=== PATIENT | female | born 1950 | race Caucasian/White ===

== ENCOUNTER 2016-12-10 06:15 | Inpatient (IN) | payer MEDICARE, BC ==
[~2016-12-10] VITALS: Ht 157.5 cm; Wt 73.0 kg
[2016-12-10] VITALS (17 sets, daily range): BP systolic 82–138; BP diastolic 40–98
[~2016-12-10 06:15] MED LIST: cefOXitin Sod 2 GM in D5W 110 ML IVPB ONE
--- NOTE | 2016-12-10 06:50 | Pre-Procedure Note/Attestation ---
Pre-Procedure Note/Attestation Complete Prior to Procedure Planned Procedure: not applicable Procedure Narrative: cystocele and rectocele repair vaginal sling cystoscopy Indications for Procedure Pre-Operative Diagnosis: vaginal prolapse Attestation I attest that I discussed the nature of the procedure; its benefits; risks and complications; and alternatives (and the risks and benefits of such alternatives ), prior to the procedure, with the patient (or the patient's legal employment program representative). I attest that, if there was a reasonable possibility of needing a blood transfusion, the patient (or the patient's legal employment program representative) was given the [facility] standardized written summary, pursuant to the Su[place] Blood Safety Act ([place] Health and Safety Code # 1645, as amended). I attest that I re-evaluated the patient just prior to the surgery and that there has been no change in the patient's H&P, except as documented below: Zen Hummel MD Dec 10, 2016 06:50
[2016-12-10] MEDS ORDERED: LR 1000ml 1,000 ML IVLG SCH (07:04)
[2016-12-10] MEDS ORDERED: ATORVASTATIN CA20 MG ORAL (07:10)
[2016-12-10] MEDS ORDERED: LOSARTAN POTASS50 MG ORAL (07:10)
[2016-12-10] MEDS ORDERED: ASPIRIN81 MG ORAL (07:10)
--- NOTE | 2016-12-10 07:13 | Anethesia Preoperative Eval ---
Anesthesia Pre-op PMH/ROS General Date of Evaluation: Dec 10, 2016 Time of Evaluation: 08:41 Anesthesiologist: Bee ASA Score: ASA 3 Mallampati Score Class I : Soft palate, uvula, fauces, pillars visible Class II: Soft palate, uvula, fauces visible Class III: Soft palate, base of uvula visible Class IV: Only hard plate visible Mallampati Classification: Class II Surgeon: Nakia Diagnosis: Vaginal Prolapse Surgical Procedure: Laparoscopic Assisted Hysterectomy, BSO, rectocele repair Anesthesia History: none Family History: no anesthesia problems Allergies: Coded Allergies: No Known Allergies (Unverified , 12/05/16) Medications: see eMAR Past Medical History Cardiovascular: Reports: HTN, other - HL, valve dz - Mitral Valve Disease Gastrointestinal/Genitourinary: Reports: other - Renal Stones HEENT: Reports: cataract (L), cataract (R), other - R Ear Deaf Other: obesity - BMI 30 Anesthesia Pre-op Phys. Exam Physician Exam Constitutional: NAD Neurologic: CN 2-12 intact Cardiovascular: RRR Respiratory: CTA Gastrointestinal: S/NT/ND Airway Exam Mallampati Score: Class II MO: limited ROM: limited Teeth: missing, intact Anesthesia Pre-op A/P Risk Assessment & Plan Assessment: ASA 3 Plan: GA, BIS, Glidescope Status Change Before Surgery: No Pre-Antibiotics Dru Grams Cefoxitin IV Given Within 1 Hr of Incision: Yes Time Given: 08:56 Ermias Moreno MD Dec 10, 2016 07:13
[2016-12-10] MEDS ORDERED: DiphenhydrAMINE 50mg/ml Inj IVP PRN (07:15)
[2016-12-10] MEDS ORDERED: Norco 5mg/325mg tab ORAL PRN ×2 (07:15→13:45)
[2016-12-10] MEDS ORDERED: Hydromorphone 0.5mg/0.5ml inj IVP PRN (07:15)
[2016-12-10] MEDS ORDERED: Midazolam 2mg/2ml Inj IVP PRN (07:15)
[2016-12-10] MEDS ORDERED: Ketorolac 30mg Inj IV PRN (07:15)
[2016-12-10] MEDS ORDERED: Norco 7.5mg/325mg tab ORAL PRN (07:15)
[2016-12-10] MEDS ORDERED: fentaNYL 100 mcg/2 mL IV PRN (07:15)
[2016-12-10] MEDS ORDERED: Ketorolac 60mg Inj IV PRN (07:15)
[2016-12-10] MEDS ORDERED: Meperidine 25mg/0.5ml Inj IV PRN (07:15)
[2016-12-10] MEDS ORDERED: Metoclopramide 10mg/2ml Inj IVP PRN (07:15)
[2016-12-10] MEDS ORDERED: Atropine Inj 1mg/10ml Syr IV PRN (07:15)
[2016-12-10] MEDS ORDERED: LORazepam Inj 2mg/ml 1ml IV PRN (07:15)
[2016-12-10] MEDS ORDERED: Oxycodone/Acetaminophen 5-325 ORAL PRN (07:15)
[2016-12-10] MEDS ORDERED: cefOXitin 2gm Inj ONE (07:18)
[2016-12-10] MEDS ORDERED: Ropivacaine 5mg/ml Vial 20ml INJ ONE (07:19)
--- NOTE | 2016-12-10 07:54 | Immediate Post-Op Evaluation ---
Immediate Post-Op Evalulation Immediate Post-Op Evalulation Procedure: Laparoscopic Assisted Hysterectomy, BSO, rectocele repair Date of Evaluation: Dec 10, 2016 Time of Evaluation: 12:19 IV Fluids: 1000 LR Blood Products: 0 Estimated Blood Loss: 75 Urinary Output: 360 Blood Pressure Systolic: 113 Blood Pressure Diastolic: 73 Pulse Rate: 51 Respiratory Rate: 15 O2 Sat by Pulse Oximetry: 97 Temperature (Fahrenheit): 07.4 Pain Score (1-10): 2 Nausea: No Vomiting: No Complications 0 Patient Status: awake, reacts, patent, extubated, none Hydration Status: adequate Dru Grams Cefoxitin IV Given Within 1 Hr of Incision: Yes Time Given: 08:56 Ermias Moreno MD Dec 10, 2016 07:54
[2016-12-10] MEDS ORDERED: Surgicel 4in x 8in TOPIC ONE (07:57)
[2016-12-10] MEDS ORDERED: Acetaminophen (Non formulary) 100 ML IV ONE (08:30)
[2016-12-10] MEDS ORDERED: ProvayBlue 5mg/ml 10ml amp INJ ONE (08:30)
[2016-12-10] MEDS ORDERED: Lidocaine 1% MPF 10mg/ml 5ml ONE (08:45)
[2016-12-10] MEDS ORDERED: Propofol 10mg/ml 20ml IV ONE (08:45)
[2016-12-10] MEDS ORDERED: Midazolam 2mg/2ml Inj ONE (08:45)
[2016-12-10] MEDS ORDERED: Dexamethasone 4mg/ml vial ONE (08:45)
[2016-12-10] MEDS ORDERED: Glycopyrrolate 0.2mg/ml 1ml Vial ONE (08:45)
[2016-12-10] MEDS ORDERED: Sterile Water For Irrig 2000ml IRRIG ONE (08:45)
[2016-12-10] MEDS ORDERED: LR 1000ml ONE (08:45)
[2016-12-10] MEDS ORDERED: Neostigmine 1mg/ml 10ml Inj ONE (08:45)
[2016-12-10] MEDS ORDERED: Bupivacaine w/Epi 0.25% 30ml Vial INJ ONE (08:45)
[2016-12-10] MEDS ORDERED: NS Irrig 1000ml ONE (08:45)
[2016-12-10] MEDS ORDERED: Metoclopramide 10mg/2ml Inj ONE (08:45)
[2016-12-10] MEDS ORDERED: fentaNYL 100 mcg/2 mL IV ONE (08:45)
[2016-12-10] MEDS ORDERED: Nimbex 2mg/ml Inj 10ML IVP ONE (08:45)
--- NOTE | 2016-12-10 08:47 | Pre-Procedure Note/Attestation ---
Pre-Procedure Note/Attestation Complete Prior to Procedure Planned Procedure: not applicable Procedure Narrative: Uterine Prolapse Indications for Procedure Pre-Operative Diagnosis: LAVH, BSO (jj), sling, A&P repair (snow) Attestation I attest that I discussed the nature of the procedure; its benefits; risks and complications; and alternatives (and the risks and benefits of such alternatives ), prior to the procedure, with the patient (or the patient's legal territory representative). I attest that, if there was a reasonable possibility of needing a blood transfusion, the patient (or the patient's legal territory representative) was given the [facility] standardized written summary, pursuant to the Sujit [place] Blood Safety Act ([place] Health and Safety Code # 1645, as amended). I attest that I re-evaluated the patient just prior to the surgery and that there has been no change in the patient's H&P, except as documented below:NONE ELISE WEBB Dec 10, 2016 08:47
[2016-12-10] MEDS ORDERED: NS Irrig 1000ml IRRIG ONE (09:26)
[2016-12-10] MEDS ORDERED: Bacitracin 50000 Units Vial IRRIG ONE (10:39)
[2016-12-10] MEDS ORDERED: Sterile Water Irrig 1000ml IRRIG ONE (10:39)
--- NOTE | 2016-12-10 11:37 | Brief Operative Note ---
Immediate Post Operative Note Operative Note Pre-op Diagnosis: LAVH, BSO (jj), sling, A&P repair (snow) Procedure: LAVH, BSO Post-op Diagnosis: Pelvic Prolapse Post-op Diagnosis: same as pre-op Findings: consistent w/pre-op dx studies Surgeon: Elise Webb Lathing Supervisor: John Hummel Anesthesia: general Specimen: yes - Uterus, Ovaries, Tubes - bilaterally Complications: none Condition: stable Fluids: LR@125cc/hr Estimated Blood Loss: volume - 50 cc Drains: none Implant(s) used?: No ELISE WEBB Dec 10, 2016 11:37
[2016-12-10] MEDS ORDERED: Zolpidem 5mg tab ORAL PRN (13:45)
[2016-12-10] MEDS ORDERED: Norco 10mg/325mg tab ORAL PRN (13:45)
--- NOTE | 2016-12-10 13:50 | Brief Operative Note ---
Immediate Post Operative Note Operative Note Pre-op Diagnosis: vaginal prolapse Procedure: Cystocele and rectocele repair vaginal sling cystoscopy Post-op Diagnosis: same Surgeon: John Hummel Anesthesia: general Specimen: none Complications: none Condition: stable Estimated Blood Loss: minimal Implant(s) used?: Zen Espinoza MD Dec 10, 2016 13:50
[2016-12-10] MEDS ORDERED: Artificial Tears 1.4% Op Soln LEFT EYE PRN (16:30)
[2016-12-10] MEDS: D5 1/2NS 1,000 ML IV SCH ×2 (17:00→23:18)
[2016-12-10] MEDS ORDERED: Artificial Tears 1.4% Op Soln LEFT EYE ONE (17:00)
[2016-12-10] MEDS: cefOXitin Sod 1 GM in D5W 55 ML IV SCH ×2 (17:01→23:56)
[2016-12-10] MEDS: Docusate 100mg cap ORAL SCH (18:00)
--- NOTE | 2016-12-10 20:45 | Operative Note - Dictated ---
DATE OF OPERATION: 12/10/2016 PREOPERATIVE DIAGNOSIS: Vaginal prolapse. POSTOPERATIVE DIAGNOSIS: Vaginal prolapse. OPERATION: Transvaginal cystocele repair, rectocele repair, vaginal wall sling, colposuspension, cystoscopy. SURGEON: Zen Hummel M.D. ANESTHESIA: General. FINDINGS: Severe prolapse of the vagina. INDICATIONS FOR SURGERY: The patient is well known to me, came to my office with above complaints and stress incontinence. She underwent urodynamic study showing bladder prolapse and rectal prolapse as well as open urethra. Treatment options were explained to her in great length. She understood the nature of the procedure and all potential complications. She understands the combined approach with tunnel miner Dr. Whitman and myself and signed a consent. DESCRIPTION OF OPERATION: The patient was brought to the operating room, placed in lithotomy position, prepped and draped in standard fashion. After Dr. Whitman completed hysterectomy and oophorectomy, I performed the cystoscopy. There was good ejection of the methylene blue from both ureteral orifices. After that, colporrhaphy in the anterior part was made and bladder was from the vagina. Retrovesical space was entered and using [employer] device sutures were placed through the sacrospinous ligament and the mesh was secured over the anterior posterior bladder and also secured to the dome of the vagina. Using the device, the vagina was well supported anteriorly and secured. The vaginal mucosa was trimmed. Cystoscopy was done showing normal ejection of methylene blue from both ureteral orifices and placed. Medial urethral sling was placed using [employer] device and left indwelling. After that, the formal rectocele repair with interrupted Vicryl sutures was done to repair rectocele. Vagina was trimmed and closed with 2-0 running Vicryl. There was no evidence of active bleeding. The vagina was packed and a Walters was left indwelling. Sponge count, instrument count was correct. Zen Hummel M.D. DR: Yunior JOB#: [id number] CC: SHASHANK
[2016-12-11] VITALS: BP 116/62
[2016-12-11 04:00] VITALS: BP 122/61
[2016-12-11 07:47] LABS: BASOPHILS % (AUTO) 0.2 % (0.0-2.0); EOSINOPHILS % (AUTO) 0.2 % (0.0-3.0); LYMPHOCYTES % (AUTO) 18.1 % (20.0-45.0); MEAN CORPUSCULAR HEMOGLOBIN 36.4 PG (27.0-31.0); MEAN CORPUSCULAR HGB CONC 36.3 G/DL (32.0-36.0); MEAN CORPUSCULAR VOLUME 100 FL (80-99); MEAN PLATELET VOLUME 6.4 FL (6.5-10.1); NEUTROPHILS % (AUTO) 74.6 % (45.0-75.0); PLATELET COUNT 190 K/UL (150-450); RED BLOOD COUNT 3.71 M/UL (4.20-5.40); RED CELL DISTRIBUTION WIDTH 10.2 % (11.6-14.8); WHITE BLOOD COUNT 12.4 K/UL (4.8-10.8)
[2016-12-11 07:50] VITALS: BP 145/83
[2016-12-11 08:05] LABS: ALANINE AMINOTRANSFERASE 14 U/L (3-33); ALBUMIN/GLOBULIN RATIO 1.9 (1.0-2.7); ANION GAP 13 (5-15); ASPARTATE AMINO TRANSFERASE 21 U/L (5-40); CALCIUM 8.3 mg/dL (8.6-10.2); CARBON DIOXIDE 25 mEQ/L (20-30); CHLORIDE 104 mEQ/L (98-107); CREATININE 0.7 mg/dL (0.5-0.9); GLOMERULAR FILTRATION RATE > 60 mL/min (>60); HEMOLYSIS 6; POTASSIUM 3.9 mEQ/L (3.4-4.9); SODIUM 142 mEQ/L (135-145); TOTAL PROTEIN 5.9 g/dL (6.6-8.7)
[2016-12-11] MEDS: cefOXitin Sod 1 GM in D5W 55 ML IV SCH (08:14)
[2016-12-11] MEDS: Docusate 100mg cap ORAL SCH ×2 (08:41→17:45)
[2016-12-11] MEDS: D5 1/2NS 1,000 ML IV SCH ×4 (08:42→23:00)
[2016-12-11 11:59] VITALS: BP 138/89
[2016-12-11] MEDS ORDERED: Ketorolac 30mg Inj IV SCH (12:00)
[2016-12-11] MEDS: Ketorolac 30mg Inj IV SCH ×2 (12:55→18:10)
[2016-12-11 16:15] VITALS: BP 143/75
[2016-12-11 20:00] VITALS: BP 140/75
[2016-12-12] VITALS: BP 123/70
[2016-12-12] MEDS: Ketorolac 30mg Inj IV SCH ×3 (00:48→12:00)
[2016-12-12 04:00] VITALS: BP 119/69
[2016-12-12] MEDS: D5 1/2NS 1,000 ML IV SCH (07:00)
[2016-12-12 08:00] VITALS: BP 126/60
[2016-12-12] MEDS: Docusate 100mg cap ORAL SCH (09:00)
--- NOTE | 2016-12-12 11:39 | General Progress Note ---
Assessment/Plan Status: doing well, stable Status Narrative sp hysterectomy and vaginal reconstruction Assessment/Plan DC Aslter catheter Can DC home if Voided Subjective Constitutional: Reports: no symptoms Gastrointestinal/Abdominal: Reports: no symptoms Genitourinary: Reports: no symptoms Allergies: Coded Allergies: No Known Allergies (Unverified , 12/05/16) Objective Last 24 Hour Vital Signs Date Time Temp Pulse Resp B/P Pulse Ox O2 Delivery O2 Flow Rate FiO2 12/12/16 08:00 97.9 60 20 126/60 96 Room Air 12/12/16 04:00 98.8 62 18 119/69 96 Room Air 12/12/16 00:00 99.2 66 18 123/70 95 Room Air 12/11/16 20:00 98.6 64 18 140/75 96 Room Air 12/11/16 18:40 98.3 12/11/16 16:15 98.3 20 20 143/75 98 Room Air 12/11/16 11:59 96.7 73 20 138/89 95 Room Air Intake and Output 12/11/16 12/12/16 19:00 07:00 Intake Total 2335 ml Output Total 4200 ml 3300 ml Balance -1865 ml -3300 ml Intake Oral 1225 ml IV Total 1110 ml Output Urine Total 4200 ml 3300 ml # Voids 4 Height (Feet): 5 Height (Inches): 2.00 Weight (Pounds): 161 Pelvis: normal external exam Genitourinary/Rectal: other - salter in place no hematuria Zen Hummel MD Dec 12, 2016 11:39
[2016-12-12 12:00] VITALS: BP 138/73
--- NOTE | 2016-12-15 07:50 | Discharge Summary ---
Discharge Summary Hospital Course Date of Admission Dec 10, 2016 at 06:15 Date of Discharge Dec 12, 2016 at 14:30 Admitting Diagnosis vaginal prolapse Reason for Hospitalization: vaginal prolapse JAVIER Coats is a 66 year old female who was admitted on Dec 10, 2016 at 06 :15 for vaginal prolapse and elective surgery Procedures 12/10 dr Hummel - Transvaginal cystocele repair, rectocele repair, vaginal wall sling, colposuspension, cystoscopy. 12/10 dr Whitman - Laparoscopic Assisted Hysterectomy, BSO Hospital Course s/p elective surgery LAVH, BSO, sling, A&P repair course of recovery uneventful pain controlled Walters dc 12/12 able to void tolerated diet cleared for dc and outpatient fup in clinic with surgeon Discharge Medications Continued Medications: Aspirin* (Aspirin*) 81 Mg Tab.chew 81 MG ORAL DAILY, TAB Atorvastatin Calcium* (Atorvastatin Calcium*) 20 Mg Tablet 20 MG ORAL BEDTIME, TAB Losartan Potassium* (Losartan Potassium*) 50 Mg Tablet 50 MG ORAL DAILY, TAB Discharge Condition Upon Discharge: stable Discharge Disposition Patient was discharged to Home () Discharge Diagnoses: Discharge Instructions Discharge Instructions Special Instructions I have been assigned to complete a D/C Summary on this account. I was not involved in the patient management Jess Landers NP ([place]te[place]) Dec 15, 2016 07:50
== END 2016-12-12 14:30 | disposition home or self-care (01) | DRG 743 ==
LOC: SDSOVERFLO 06:15 → 3E 14:40
PROC: 0TSC0ZZ Reposition Bladder Neck, Open Approach (ICD-10-PCS; principal; 2016-12-10 07:30)
PROC: 0UT7FZZ Resection of Bilateral Fallopian Tubes, Via Natural or Artificial Opening With Percutaneous Endoscopic Assistance (ICD-10-PCS; principal; 2016-12-10 07:30)
PROC: 0JUC0JZ Supplement of Pelvic Region Subcutaneous Tissue and Fascia with Synthetic Substitute, Open Approach (ICD-10-PCS; principal; 2016-12-10 07:30)
PROC: 0UT9FZZ Resection of Uterus, Via Natural or Artificial Opening With Percutaneous Endoscopic Assistance (ICD-10-PCS; principal; 2016-12-10 07:30)
PROC: 0UT2FZZ Resection of Bilateral Ovaries, Via Natural or Artificial Opening With Percutaneous Endoscopic Assistance (ICD-10-PCS; principal; 2016-12-10 07:30)
PROC: 0JQC0ZZ Repair Pelvic Region Subcutaneous Tissue and Fascia, Open Approach (ICD-10-PCS; principal; 2016-12-10 07:30)
DX: N81.10 Cystocele, unspecified (principal); E78.5 Hyperlipidemia, unspecified; N39.3 Stress incontinence (female) (male); N81.6 Rectocele
CPT/HCPCS: 36415; 80053; 82962; 85025; 86850; 86900; 86901; 87081; 94003; 94150; J2250; J2405; J2710; J2765